=== PATIENT | male | born 1965 | race Caucasian/White ===

== ENCOUNTER 2017-07-26 15:39 | Emergency (ER) | payer SELFPAY ==
[~2017-07-26] VITALS: Ht 170.2 cm; Wt 68.0 kg
[2017-07-26 15:59] VITALS: BP 141/66
[2017-07-26] MEDS ORDERED: LIDOCAINE 1%/EPI 1:100,000 20 ML VIAL. INJ ONE (16:00)
[2017-07-26] MEDS ORDERED: LIDOCAINE 2% 20 ML VIAL. IJ ONE (16:15)
--- NOTE | 2017-07-26 16:30 | RAD ---
Left thumb 3 views. History: Laceration 3 views were taken of the left thumb. There is no fracture or acute osseous abnormality. There is soft tissue injury. An opaque foreign body is not identified. There is mild arthritis at the wrist between the navicular and trapezium. There is mild arthritis at the distal interphalangeal joints. Impression: 1. No osseous abnormality noted in the left thumb.
--- NOTE | 2017-07-26 17:06 | PHYS DOC ---
Past Medical History Past Medical History: No Pertinent History Past Surgical History: No Surgical History Additional Information: 1 PPD. Alcohol Use: Sober Additional Information: "10 YEARS sober." Drug Use: None Adult General Chief Complaint Chief Complaint: LACERATION/AVULSION HPI HPI Patient is a 52 year old male who presents with left thumb laceration, patient states he was unscrewing a piece of wood that fell back and pinned his left thumb between the wood the wall. Review of Systems Review of Systems Constitutional: Denies fever or chills [] Musculoskeletal: Denies back pain or joint pain [] Integument: left thumb laceration Neurologic: Denies headache, focal weakness or sensory changes [] All other systems were reviewed and found to be within normal limits, except as documented in this note. Current Medications Current Medications Current Medications Medications (Trade) Dose Ordered Sig/[place] Start Time Stop Time Status Last Admin Dose Admin Lidocaine HCl 20 ml 1X ONCE 07/26/17 16:15 07/26/17 16:22 DC Lidocaine/ Epinephrine (Xylocaine 1%-Epi 1:100,000) 20 ml 1X ONCE 07/26/17 16:00 07/26/17 16:14 DC Allergies Allergies Allergies Coded Allergies Type Severity Reaction Last Updated Verified No Known Drug Allergies 07/26/17 No Physical Exam Physical Exam Constitutional: Well developed, well nourished, no acute distress, non-toxic appearance. [] Skin: Warm, left mid dorsal thumb with a flap type laceration approximately 4 cm. There is no tendon involvement. Patient able to flex and extend the left thumb at the PIP and DIP joints. Adequate radius sensation to the left thumb. + 2 left radial pulse. Back: No tenderness, no CVA tenderness. [] Extremities: No tenderness, no cyanosis, no clubbing, ROM intact, no edema. [] Neurologic: Alert and oriented X 3, normal motor function, normal sensory function, no focal deficits noted. [] Psychologic: Affect normal, judgement normal, mood normal. [] Current Patient Data Vital Signs Vital Signs Date Time Temp Pulse Resp B/P (MAP) Pulse Ox O2 Delivery O2 Flow Rate FiO2 07/26/17 15:59 98.1 79 17 98 Room Air 98.1 EKG EKG [] Radiology/Procedures Radiology/Procedures Indication: Left thumb laceration Procedure: The patient was placed in the appropriate position and anesthesia around the laceration was 1% buffered lidocaine. The area was then explored for foreign objects, none was found. The laceration was closed with 8 interrupted sutures using 4. 0 Ethilon. The wound was covered with nonstick dressing. Total repaired wound length: approx. 4 cm Other Items: none] The patient tolerated the procedure well]. Complications:none.[] Course & Med Decision Making Course & Med Decision Making Pertinent Labs and Imaging studies reviewed. (See chart for details) Patient has left thumb laceration that was closed with stitches as noted in procedures by me. Tetanus was updated. Provided wound care instructions as well as return precautions. Dragon Disclaimer Dragon Disclaimer This electronic medical record was generated, in whole or in part, using a voice recognition dictation system. Departure Departure Impression: Primary Impression: Laceration of left thumb Disposition: 01 HOME, SELF-CARE Condition: STABLE Referrals: NO PCP (PCP) follow up with your doctor or ED in 7-10 days for suture removal Patient Instructions: Laceration Care, Adult Additional Instructions: You have left thumb laceration that was closed with stitches. Keep the area clean and dry. You can shower. Monitor the area for signs of infection including increased redness to the area, yellow drainage from the area, warmth to the area and return to the ED if they occur. Apply Neosporin to the area twice a day. Follow-up with the ED with your doctor in 7-10 days for stitches removal. Problem Qualifiers Primary Impression: Laceration of left thumb Encounter type: initial encounter Damage to nail status: without damage Foreign body presence: without foreign body Qualified Codes: S61.012A - Laceration without foreign body of left thumb without damage to nail, initial encounter SHANIKA RUBIO APRN Jul 26, 2017 17:06
== END 2017-07-26 17:12 | disposition home or self-care (01) ==
LOC: ER 15:39
DX: S61.012A Laceration without foreign body of left thumb without damage to nail, initial encounter (principal); F17.200 Nicotine dependence, unspecified, uncomplicated; W23.0XXA Caught, crushed, jammed, or pinched between moving objects, initial encounter; Y93.89 Activity, other specified; Y92.89 Other specified places as the place of occurrence of the external cause; Y99.8 Other external cause status
CPT/HCPCS: 12002; 73140; 99284-25

== ENCOUNTER 2021-06-18 13:36 | Emergency (ER) | payer SELFPAY ==
[~2021-06-18] VITALS: Ht 172.7 cm; Wt 72.0 kg
--- NOTE | 2021-06-18 13:51 | PHYS DOC ---
Past Medical History Past Medical History: No Pertinent History Past Surgical History: No Surgical History Smoking Status: Current Every Day Smoker Alcohol Use: Sober Drug Use: None General Adult EDM: Chief Complaint: CHEST PAIN HPI: HPI: Patient is a 56 year old who presents with 5 weeks of sharp, relatively constant left-sided pectoral chest pain. He reports his symptoms began after he was working in a house that he felt was humid and had mold. He read describes sharp intermittent spasms. He denies dyspnea, pleuritic pain, cough, hemoptysis, dizziness, diaphoresis, nausea vomiting, abdominal pain. No specific exacerbating or relieving factors. He takes [id number] Aleve or ibuprofen on occasion, though he has not taken anything today. No acute changes reported today. He has not sought medical treatment or evaluation until today. He denies recent surgery, travel, recent hospitalization. He denies lower extremity pain or swelling. Review of Systems: Review of Systems: Constitutional: Denies fever or chills. [] HENT: Denies nasal congestion or sore throat. [] Respiratory: Denies cough or shortness of breath. [] Cardiovascular: Reports sharp left sided chest pain. Denies peripheral edema. GI: Denies abdominal pain, nausea, vomiting, bloody stools or diarrhea. [] Musculoskeletal: Denies back pain or joint pain. [] Integument: Denies rash. [] Neurologic: Denies headache, focal weakness or sensory changes. [] Psychiatric: Denies depression or anxiety. [] Heart Score: C/O Chest Pain: Yes HEART Score for Chest Pain: HEART Score for Chest Pain Response (Comments) Value History Slighlty/Non-Suspicious 0 ECG Normal 0 Age >45 - < 65 1 Risk Factors No Risk Factors 0 Total 1 Risk Factors: Risk Factors: DM, Current or recent (<one month) smoker, HTN, HLP, family history of CAD, obesity. Risk Scores: Score 0 - 3: 2.5% MACE over next 6 weeks - Discharge Home Score 4 - 6: 20.3% MACE over next 6 weeks - Admit for Clinical Observation Score 7 - 10: 72.7% MACE over next 6 weeks - Early Invasive Strategies Allergies: Allergies: Allergies Coded Allergies Type Severity Reaction Last Updated Verified No Known Drug Allergies 06/18/21 No Physical Exam: PE: Constitutional: Well developed, well nourished, no acute distress, non-toxic appearance. [] HENT: Normocephalic, atraumatic Eyes: Sclera are clear, anicteric. Neck: Normal range of motion, no tenderness, supple, no stridor. Trachea midline. No JVD. Cardiovascular:Heart rate regular rhythm, no murmur, +2 radial and posterior tibial pulses bilaterally. Lungs & Thorax: Bilateral breath sounds clear to auscultation, no rales, rhonchi or wheezes. No chest or thorax trauma or injury, no stridor. Speaks in full and clear sentences. Equal chest rise. No palpable crepitus, deformity or step-offs. Abdomen: Bowel sounds normal, soft, no tenderness, no masses, no pulsatile masses. [] Skin: Warm, dry, no erythema, no rash. [] Back: No tenderness, no CVA tenderness. [] Extremities: No tenderness, no cyanosis, no clubbing, ROM intact, no edema. No calf tenderness. Neurologic: Alert and oriented X 3, normal motor function, normal sensory function, no focal deficits noted. [] Psychologic: Affect normal, judgement normal, mood normal. [] Current Patient Data: Vital Signs: Vital Signs Date Time Temp Pulse Resp B/P (MAP) Pulse Ox O2 Delivery O2 Flow Rate FiO2 06/18/21 13:47 97.3 79 15 172/81 (111) 100 Room Air 97.3 EKG: EKG: EKG is interpreted at 1352 Rhythm is sinus Rate is 68 bpm Ed[place] is normal No STEMI No acute ischemic changes Radiology/Procedures: Radiology/Procedures: IMAGING REPORT Signed PATIENT: JESSICA BOLES ACCOUNT: [id number] : 1965 LOCATION: ER AGE: 56 SEX: M EXAM STATUS: REG ER ORD. PHYSICIAN: ROBERTO MIGUEL DO REASON: chest pain PROCEDURE: PORTABLE CHEST 1V EXAM: XR CHEST 1V 06/18/2021 2:01 PM CLINICAL INDICATION: Chest pain COMPARISON: None TECHNIQUE: AP upright view of the chest FINDINGS: The heart is normal in size. The lungs are well-expanded and clear. There is a 2 cm ovoid right perihilar nodular opacity. The lungs are otherwise clear. No pleural effusion or pneumothorax. No acute osseous abnormality. IMPRESSION: 2 cm ovoid right perihilar nodular opacity. CT could be obtained to further evaluate. Electronically signed by: Stephany Soares MD (06/18/2021 2:36 PM) [id number] DICTATED and SIGNED BY: STEPHANY SOARES MD DATE: 06/18/21 [id number] 0 IMAGING REPORT Signed PATIENT: JESSICA BOLES ACCOUNT: [id number] : 1965 LOCATION: ER AGE: 56 SEX: M EXAM STATUS: REG ER ORD. PHYSICIAN: ROBERTO MIGUEL DO REASON: hilar mass on CXR PROCEDURE: CT CHEST W/CONTRAST EXAM: CT CHEST WITH CONTRAST HISTORY: Hilar mass on chest x-ray COMPARISON: Chest radiograph 06/18/2021 TECHNIQUE: Helical CT of the chest performed after administration of 75 mL Omnipaque 300 intravenous contrast. Coronal and sagittal reformats were obtained. One or more of the following individualized dose reduction techniques were utilized for this examination: 1. Automated exposure control 2. Adjustment of the mA and/or kV according to patient size 3. Use of iterative reconstruction technique. FINDINGS: Thyroid gland and thoracic inlet: Normal. Heart and great vessels: Heart is normal in size. No pericardial effusion. Thoracic aorta is normal in caliber. There is a direct origin of the left vertebral artery from the aortic arch. Mediastinum and alexis: There is a right hilar lymph node measuring 1.7 x 1.3 cm. A few other additional tiny mediastinal lymph nodes, nonspecific. No lymphadenopathy. Lungs and pleura: 3 mm noncalcified nodule in the lateral right middle lobe (image 40, series 2). Minimal linear atelectasis in the posterior right lower lobe. The lungs are otherwise clear. Central airways are clear. No pleural effusion. Chest wall and axillae: No axillary lymphadenopathy. Chest wall is unremarkable. Upper abdomen: There is an 8mm hypodense lesion in the left kidney with greater than fluid density, not fully evaluated on this exam. Upper abdomen is otherwise unremarkable. Bones: There is a hemangioma in the L2 vertebral body. No acute osseous abnormality. IMPRESSION: 1. No suspicious nodule or mass at the right hilum. There is a prominent right hilar lymph node, likely within normal limits and incidental. The nodular opacity on chest radiograph may correspond with a pulmonary vessel. 2. Incidental noncalcified 3 mm nodule in the right middle lobe. If the patient is at high risk for lung cancer, an optional twelve-month follow-up CT could be obtained to ensure stability. Otherwise, no follow-up is indicated. 3. 8mm hypodense lesion in the left kidney. This appears to have greater than fluid density but is technically too small to characterize. Follow-up ultrasound of the kidneys could be obtained to further evaluate. Electronically signed by: Stephany Soares MD (06/18/2021 3:52 PM) [id number] DICTATED and SIGNED BY: STEPHANY SOARES MD DATE: 06/18/21 [id number] 0 Course & Med Decision Making: Course & Med Decision Making Pertinent Labs and Imaging studies reviewed. (See chart for details) I have discussed the findings, differential diagnosis and plan of care with the patient. He is given IV Toradol for pain. He is resting comfortably. No current indication for further invasive exams, imaging or admission. His pain is very atypical has been present for 5 weeks, troponin is negative. No acute ischemia noted on EKG. No current indication for emergent cardiology consultation, though I did indicate to him that he should follow-up as an outpatient with cardiology and primary care physician. His blood pressure is somewhat elevated here, and he reports that this is not usual for him, he reports that he routinely checks his blood pressure and is normal. I told him he should follow-up with primary care doctor to ensure that this remains the case. We will hold off on prescribing antihypertensives at this time. Regarding his chest x-ray and CT findings, I do recommend he have a repeat CT scan in 12 months, and he is given information for outpatient pulmonary follow- up. Return precautions are given. Dragon Disclaimer: Dragon Disclaimer: This electronic medical record was generated, in whole or in part, using a voice recognition dictation system. Departure Departure Impression: Primary Impression: Atypical chest pain Additional Impressions: Hilar lymphadenopathy Lung nodule Disposition: HOME / SELF CARE / HOMELESS Condition: STABLE Referrals: NO PCP (PCP) THU ALLEN MD Patient Instructions: Chest Pain (Nonspecific), Chest Pain, Child Additional Instructions: You may continue to use [id number] Tylenol or ibuprofen for pain. You may use the muscle relaxer for more severe pain or spasm as well. Return for any acute changes in pain, shortness of breath, coughing up blood, severe dizziness, vomiting, if you are acutely injured or have any trauma or any other concerns. Please follow-up with primary care physician. Regarding the lung nodule on your CAT scan, it is recommended that you have a repeat CAT scan in 12 months. You should follow-up with not only a primary care physician but also with pulmonology, you are given Dr. Braga's information for this. Scripts Cyclobenzaprine Hcl (CYCLOBENZAPRINE HCL) 10 Mg Tablet 1 TAB PO BID for muscle spasm, #14 TAB 0 Refills Prov: ROBERTO MIGUEL DO 06/18/21 ROBERTO MIGUEL DO Jun 18, 2021 13:51
[2021-06-18] MEDS ORDERED: KETOROLAC 15 MG/ML VIAL. ONE (14:00)
[2021-06-18] MEDS ORDERED: KETOROLAC 15 MG/ML VIAL. IVP ONE (14:00)
[2021-06-18 14:15] LABS: BASO # 0.1 x10^3/uL (0.0-0.2); BASO % 1 % (0-3); EOS # 0.3 x10^3/uL (0.0-0.7); EOS % 4 % (0-3); HEMATOCRIT 42.7 % (39.0-53.0); HEMOGLOBIN 14.5 g/dL (13.0-17.5); LYMPH # 1.4 x10^3/uL (1.0-4.8); LYMPH % 22 % (24-48); MEAN CORPUSCULAR HEMOGLOBIN 31 pg (25-35); MEAN CORPUSCULAR HGB CONC 34 g/dL (31-37); MEAN CORPUSCULAR VOLUME 91 fL (79-100); MONO # 0.6 x10^3/uL (0.0-1.1); MONO % 9 % (0-9); NEUT # 4.1 x10^3/uL (1.8-7.7); NEUT % 64 % (31-73); PLATELET COUNT 259 x10^3/uL (140-400); RED BLOOD COUNT 4.67 x10^6/uL (4.30-5.70); RED CELL DISTRIBUTION WIDTH 14.7 % (11.5-14.5); WHITE BLOOD COUNT 6.5 x10^3/uL (4.0-11.0)
[2021-06-18 14:27] LABS: CALCIUM 8.6 mg/dL (8.5-10.1); CREATININE 0.9 mg/dL (0.7-1.3); GFR 86.7; MAGNESIUM 1.8 mg/dL (1.8-2.4); POTASSIUM 4.3 mmol/L (3.5-5.1)
--- NOTE | 2021-06-18 14:39 | RAD ---
EXAM: XR CHEST 1V 06/18/2021 2:01 PM CLINICAL INDICATION: Chest pain COMPARISON: None TECHNIQUE: AP upright view of the chest FINDINGS: The heart is normal in size. The lungs are well-expanded and clear. There is a 2 cm ovoid right perihilar nodular opacity. The lungs are otherwise clear. No pleural effusion or pneumothorax. No acute osseous abnormality. IMPRESSION: 2 cm ovoid right perihilar nodular opacity. CT could be obtained to further evaluate. Electronically signed by: Stephany Soares MD (06/18/2021 2:36 PM) [id number]
[2021-06-18] MEDS ORDERED: IOHEXOL 300 MG/ML 100ML VIAL. IV ONE (15:00)
[2021-06-18 15:33] VITALS: BP 141/80
--- NOTE | 2021-06-18 15:55 | RAD ---
EXAM: CT CHEST WITH CONTRAST HISTORY: Hilar mass on chest x-ray COMPARISON: Chest radiograph 06/18/2021 TECHNIQUE: Helical CT of the chest performed after administration of 75 mL Omnipaque 300 intravenous contrast. Coronal and sagittal reformats were obtained. One or more of the following individualized dose reduction techniques were utilized for this examinat ion: 1. Automated exposure control 2. Adjustment of the mA and/or kV according to patient size 3. Use of iterative reconstruction technique. FINDINGS: Thyroid gland and thoracic inlet: Normal. Heart and great vessels: Heart is normal in size. No pericardial effusion. Thoracic aorta is normal i n caliber. There is a direct origin of the left vertebral artery from the aortic arch. Mediastinum and alexis: There is a right hilar lymph node measuring 1.7 x 1.3 cm. A few other additiona l tiny mediastinal lymph nodes, nonspecific. No lymphadenopathy. Lungs and pleura: 3 mm noncalcified nodule in the lateral right middle lobe (image 40, series 2). Min imal linear atelectasis in the posterior right lower lobe. The lungs are otherwise clear. Central air ways are clear. No pleural effusion. Chest wall and axillae: No axillary lymphadenopathy. Chest wall is unremarkable. Upper abdomen: There is an 8mm hypodense lesion in the left kidney with greater than fluid density, n ot fully evaluated on this exam. Upper abdomen is otherwise unremarkable. Bones: There is a hemangioma in the L2 vertebral body. No acute osseous abnormality. IMPRESSION: 1. No suspicious nodule or mass at the right hilum. There is a prominent right hilar lymph node, lik jane within normal limits and incidental. The nodular opacity on chest radiograph may correspond with a pulmonary vessel. 2. Incidental noncalcified 3 mm nodule in the right middle lobe. If the patient is at high risk for lung cancer, an optional twelve-month follow-up CT could be obtained to ensure stability. Otherwise, no follow-up is indicated. 3. 8mm hypodense lesion in the left kidney. This appears to have greater than fluid density but is te chnically too small to characterize. Follow-up ultrasound of the kidneys could be obtained to further evaluate. Electronically signed by: Stephany Soares MD (06/18/2021 3:52 PM) [id number]
[2021-06-18] MEDS ORDERED: CYCL10TA19 PO (16:17)
--- NOTE | 2021-06-18 18:53 | EKG ---
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
== END 2021-06-18 16:27 | disposition home or self-care (01) ==
LOC: ER 13:36
DX: R07.89 Other chest pain (principal); R59.0 Localized enlarged lymph nodes; R91.1 Solitary pulmonary nodule; F17.200 Nicotine dependence, unspecified, uncomplicated
CPT/HCPCS: 36415; 71045; 71260; 80048; 83735; 84484; 85025; 85379; 93005; 96374; 99285; J1885; Q9967

== ENCOUNTER 2021-06-29 21:34 | Emergency (ER) | payer SELFPAY ==
[~2021-06-29] VITALS: Ht 170.2 cm; Wt 69.5 kg
[~2021-06-29 21:34] MED LIST: CYCL10TA19 PO
[2021-06-29 22:14] VITALS: BP 135/71
[2021-06-29] MEDS ORDERED: CYCL10TA19 PO (22:25)
--- NOTE | 2021-06-29 22:25 | PHYS DOC ---
Past Medical History Past Medical History: No Pertinent History Past Surgical History: No Surgical History Smoking Status: Former Smoker Alcohol Use: None Drug Use: None General Adult EDM: Chief Complaint: CHEST PAIN HPI: HPI: Patient is a 56 year old male without pertinent past medical history who presents with 6 and half weeks of left-sided chest pain. States that it encircles the border of his pec muscle. Worse with movement of the upper body and upper extremities. States it is exquisitely worse with vacuuming cleaning. Describes it as a dull constant pressure, that gets worse with spasms with activity. Not pleuritic. No associated fever/chills, shortness of breath. No diaphoresis, nausea/vomiting. Is not purely exertional, but is worse specifically with movement of the upper body. He was concerned that this may have come about when he was cleaning something ilya and a basement around the time it started. States he was wearing to mask the time. He has been taking Tylenol, ibuprofen and has been resting it. With the rest it had improved, but he recently increased his activity and the pain returned. He was seen on 06/18 in this emergency department and had reassuring EKG, negative troponin, and a reassuring chest CT as well. He was advised to follow-up with his PCP, but has not done so yet. He was prescribed cyclobenzaprine at that visit, which he did feel helped his symptoms. Review of Systems: Review of Systems: Constitutional: Denies fever or chills. [] Eyes: Denies change in visual acuity. [] HENT: Denies nasal congestion or sore throat. [] Respiratory: Denies cough or shortness of breath. [] Cardiovascular: Reports exertional dyspnea or edema. [] GI: Denies abdominal pain, nausea, vomiting, bloody stools or diarrhea. [] : Denies dysuria. [] Musculoskeletal: Ports left-sided chest wall pain around the pec muscle. Integument: Denies rash. [] Neurologic: Denies headache, focal weakness or sensory changes. [] Endocrine: Denies polyuria or polydipsia. [] Lymphatic: Denies swollen glands. [] Psychiatric: Denies depression or anxiety. [] Heart Score: C/O Chest Pain: Yes HEART Score for Chest Pain: HEART Score for Chest Pain Response (Comments) Value History Slighlty/Non-Suspicious 0 ECG Normal 0 Age >45 - < 65 1 Risk Factors No Risk Factors 0 Total 1 Risk Factors: Risk Factors: DM, Current or recent (<one month) smoker, HTN, HLP, family history of CAD, obesity. Risk Scores: Score 0 - 3: 2.5% MACE over next 6 weeks - Discharge Home Score 4 - 6: 20.3% MACE over next 6 weeks - Admit for Clinical Observation Score 7 - 10: 72.7% MACE over next 6 weeks - Early Invasive Strategies Allergies: Allergies: Allergies Coded Allergies Type Severity Reaction Last Updated Verified No Known Drug Allergies 06/18/21 No Physical Exam: PE: Constitutional: Well developed, well nourished, no acute distress, non-toxic appearance. [] HENT: Normocephalic, atraumatic, bilateral external ears normal, oropharynx moist, no oral exudates, nose normal. [] Eyes: PERRLA, EOMI, conjunctiva normal, no discharge. [] Neck: Normal range of motion, no tenderness, supple, no stridor. [] Cardiovascular:Heart rate regular rhythm, no murmur [] Lungs & Thorax: Bilateral breath sounds clear to auscultation. Tenderness along the insertion of the pec muscle on the left. [] Abdomen: Bowel sounds normal, soft, no tenderness, no masses, no pulsatile masses. [] Skin: Warm, dry, no erythema, no rash. [] Back: No tenderness, no CVA tenderness. [] Extremities: No tenderness, no cyanosis, no clubbing, ROM intact, no edema. [] Neurologic: Alert and oriented X 3, normal motor function, normal sensory function, no focal deficits noted. [] Psychologic: Affect normal, judgement normal, mood normal. [] Current Patient Data: Vital Signs: Vital Signs Date Time Temp Pulse Resp B/P (MAP) Pulse Ox O2 Delivery O2 Flow Rate FiO2 06/29/21 21:50 98.2 81 16 171/93 (119) 99 Room Air 98.2 EKG: EKG: Sinus rhythm. Rate 79. Normal intervals. Normal axis. No Q waves, T wave inversion, ST elevation, or ST depression. It is unchanged from 06/18 tracing. [] Radiology/Procedures: Radiology/Procedures: [] Course & Med Decision Making: Course & Med Decision Making Pertinent Labs and Imaging studies reviewed. (See chart for details) Patient 56-year-old male without pertinent past medical history presents with 6- 1/2 weeks of left-sided chest discomfort that seems to localize to the pectoralis muscle. Had an extensive work-up on 06/18 including EKG, troponin, chest CT that was reassuring. The only cause of life-threatening chest pain is not explicitly ruled out during that visit it was pulmonary embolism, however the patient has no risk factors, normal lower extremity exam, satting 99% on room air, with normal heart rate. Also the history does not seem consistent with pulmonary embolism. We will not pursue testing for PE. I do not feel that repeat chest imaging or lab work would be helpful at this time as his symptoms are unchanged. Advised continue Tylenol, ibuprofen, rest. Since cyclobenzaprine seem to help, will provide a short prescription for this. I have advised him to follow-up with his PCP to discuss physical therapy. I have asked him to return to the emergency department if he develops new s ymptoms such as dyspnea, fever/chills, or if his pain changes in character. Boaz Disclaimer: Boaz Disclaimer: This electronic medical record was generated, in whole or in part, using a voice recognition dictation system. Departure Departure Impression: Primary Impression: Atypical chest pain Additional Impression: Pectoralis muscle strain Disposition: 01 HOME / SELF CARE / HOMELESS Condition: STABLE Referrals: NO PCP (PCP) Additional Instructions: Please schedule an appointment with your PCP to discuss physical therapy. For pain tylenol and ibuprofen are best used on a schedule. Please alternate between the two. -Tylenol 1000 mg every 6 hours (do not exceed 4000 mg in one day) -Ibuprofen 600 mg every 6 hours. Take with food. You can take cyclobenzaprine (a muscle relaxant) 10 mg every 8 hours as needed. If your pain changes and becomes associated with shortness of breath, fever/chills, nausea/vomiting, or pain gets much worse please return to the emergency department for reevaluation. Scripts Cyclobenzaprine Hcl (CYCLOBENZAPRINE HCL) 10 Mg Tablet 1 TAB PO PRN TID PRN for PAIN, #21 TAB 0 Refills Prov: RYAN CENTENO MD 06/29/21 RYAN CENTENO MD Jun 29, 2021 22:25
== END 2021-06-29 22:30 | disposition home or self-care (01) ==
LOC: ER 21:34
DX: S29.011A Strain of muscle and tendon of front wall of thorax, initial encounter (principal); Z87.891 Personal history of nicotine dependence; X58.XXXA Exposure to other specified factors, initial encounter; Y93.89 Activity, other specified; Y92.89 Other specified places as the place of occurrence of the external cause; Y99.8 Other external cause status
CPT/HCPCS: 99283